=== PATIENT | female | born 1995 | race Two or more races ===

== ENCOUNTER → 2021-11-28 | Emergency (ER) | payer MEDICAID, OTHER | END | disposition left against medical advice (07) | LOC: ER 17:27 → EDBD 17:27 | DX: T50.901A Poisoning by unspecified drugs, medicaments and biological substances, accidental (unintentional), initial encounter (principal); Z53.21 Procedure and treatment not carried out due to patient leaving prior to being seen by health care provider; Y92.89 Other specified places as the place of occurrence of the external cause ==

== ENCOUNTER 2022-01-21 19:30 | Emergency (ER) | payer MEDICAID ==
[~2022-01-21] VITALS: Ht 154.9 cm; Wt 54.0 kg
[2022-01-21 19:30] VITALS: BP 126/81
[2022-01-21] MEDS ORDERED: SODIUM CHLORIDE 0.9% 1,000 ML IV ONE (20:00)
[2022-01-21] MEDS ORDERED: LORazepam 2MG/ML-1ML VIAL IV ONE (20:30)
== END 2022-01-21 21:50 | disposition left against medical advice (07) ==
LOC: ER 19:32
DX: T40.411A Poisoning by fentanyl or fentanyl analogs, accidental (unintentional), initial encounter (principal); Y92.89 Other specified places as the place of occurrence of the external cause